=== PATIENT | female | born 1980 | race Caucasian/White ===

== ENCOUNTER → 2022-06-07 12:18 | Outpatient (BNVA) | payer SELFPAY | PROVIDERS: PCP Nurse Practitioner; Visit Provider Family Medicine | DX: Z00.00 Encounter for general adult medical examination without abnormal findings (principal); N97.9 Female infertility, unspecified | CPT/HCPCS: 80053; 84443; 85025 ==

== ENCOUNTER 2022-06-19 04:13 | Emergency (ER) | payer SELFPAY ==
[2022-06-19 04:17] VITALS: BP 125/88; PULSE 55; RESP 28; TEMP 36.9; O2SAT 98; BMI 29.9
--- NOTE | 2022-06-19 04:19 | CTR_ITS ---
PROCEDURE INFORMATION: Exam: CT Abdomen And Pelvis Without Contrast Exam date and time: 06/19/2022 4:28 AM Age: 42 years old Clinical indication: Abdominal pain; Generalized; Additional info: Abd pain TECHNIQUE: Imaging protocol: Computed tomography of the abdomen and pelvis without contrast. Radiation optimization: All CT scans at this facility use at least one of these dose optimization techniques: automated exposure control; mA and/or kV adjustment per patient size (includes targeted exams where dose is matched to clinical indication); or iterative reconstruction. COMPARISON: No relevant prior studies available. RADIATION DOSE METRICS: Total DLP (mGy-cm): 687.29 FINDINGS: Liver: Normal. No mass. Gallbladder and bile ducts: Normal. No calcified stones. No ductal dilation. Pancreas: Normal. No ductal dilation. Spleen: Normal. No splenomegaly. Adrenal glands: Normal. No mass. Kidneys and ureters: Normal. No hydronephrosis. Stomach and bowel: Unremarkable. No obstruction. No mucosal thickening. Appendix: No evidence of appendicitis. Intraperitoneal space: Trace free fluid noted in the pelvis. No free air. Vasculature: Unremarkable. No abdominal aortic aneurysm. Lymph nodes: Unremarkable. No enlarged lymph nodes. Urinary bladder: Unremarkable as visualized. Reproductive: Normal uterus. Prominent left ovary measuring 5.2 x 3.6 x 4.3 cm. Left ovarian cyst measuring 2.1 cm noted. Bones/joints: Unremarkable. No acute fracture. Soft tissues: Unremarkable. CT/CT abdomen pelvis wo con [id number] IMPRESSION: Enlarged heterogeneous appearance of the left ovary. Further characterization with pelvic ultrasound is recommended. Otherwise unremarkable CT examination of the abdomen and pelvis.
--- NOTE | 2022-06-19 04:20 | W.ED.ABDPA2 ---
Documented by User: Owen Milton MD 06/19/22 05:35 HPI - Abdominal Pain General: Chief Complaint: Vaginal Bleeding Stated Complaint: heavy vaginal bleeding, abd pain Time Seen by Provider: 06/19/22 04:16 Source: patient Mode of arrival: ambulatory Limitations: no limitations History of Present Illness: 42-year-old female states that she just started her period 2 days ago states she has been having severe cramps and lower abdominal pain states it got much worse tonight 2 to 3 hours ago she states in her lower abdomen mainly the left side. States her pain is currently an 8 out of 10 she denies any heavy vaginal bleeding states has been bleeding like her normal. Denies any clot passage denies any vaginal discharge denies any worsening proving factors. Associated Symptoms: Denies chills and fever(s) Review of Systems Const: Denies: fever(s), chills, body aches or change in appetite Eyes: Denies: blurry vision or eye discomfort ENMT: Denies: throat pain or dental pain Card: Denies: chest pain Resp: Denies: dyspnea GI: Reports: abdominal pain : Reports: vaginal bleeding Musc: Denies: neck pain or back pain Skin/Breast: Denies: rash Neuro: Denies: headache(s) Psych: Denies: depression Maik/Lymph: Denies: easy bruising All/Imm: Denies: urticaria PFSH ED PFSH: Medical History No pertinent past medical history Surgical History No pertinent past surgical history Family History Grandfather Cancer Grandmother Cancer liver Denies family history of Diabetes CAD (coronary artery disease) Clotting disorder Dementia Psychiatric illness Bleeding disorder Hypertension Stroke Social History Smoking and tobacco status: never smoked Second hand smoke exposure: No Alcohol intake: never Adopted: No Caregiver/support person: Yes Lives independently: Yes Household members: spouse Marital status: service: No Current occupational status: employed Current occupation: Self History of recent travel: No Current gender identity: Female Special shayne needs: No Agree to transfusion: Yes Physical Exam Const: COMMON NORMALS: no acute distress, patient oriented x3 and healthy appearing HENMT: COMMON NORMALS: normocephalic and atraumatic HEAD & SCALP: normocephalic and atraumatic Eye: COMMON NORMALS: Equal, round and reactive pupils present and EOMs intact bilaterally PUPIL: Yes Equal, round and reactive pupils present Neck/C-Spine: COMMON NORMALS: full ROM and supple Chest: COMMONS NORMALS: normal inspection of the chest and normal palpation of entire chest wall Resp: COMMON NORMALS: normal respiratory effort, No retractions, No use of accessory muscles and clear to auscultation bilaterally AUSCULTATION: clear to auscultation bilaterally Cardio: COMMON NORMALS: regular rate, regular rhythm and No murmurs present (Cardio) RATE: regular rate RHYTHM: regular rhythm GI: COMMON NORMALS: Normal to inspection, nondistended, normoactive bowel sounds present, Soft to palpation and no masses PALPATION: Yes Soft to palpation OTHER: lower abd tenderness Extremity: COMMON NORMALS: normal to inspection and full ROM Neuro: COMMON NORMALS: patient oriented x3, moves all extremities and no focal motor deficits Psych: COMMON NORMALS: mental status grossly normal, Normal thought process present and cooperative THOUGHT PROCESS: Normal thought process present Skin: COMMON NORMALS: no rashes or lesions noted and no wounds GENERAL SKIN EXAM: no rashes or lesions noted Course Vital Signs: Vital signs: Vital Signs Temperature 98.4 F 06/19/22 04:17 Pulse Rate 50 L 06/19/22 06:20 Respiratory Rate 16 06/19/22 06:20 Blood Pressure 101/56 06/19/22 06:20 Pulse Oximetry 95 06/19/22 06:20 Oxygen Delivery Me thod 06/19/22 06:20 MDM - Abdominal Pain Medical Decision Making Patient presents with lower abdominal pain with her menstruation her pain currently is resolved CT did show an enlarged left ovary with recommend ultrasound ultrasound is pending at this time her blood work is normal care turned over Dr. Thompson to follow ultrasound findings Lab Data : 06/19/22 04:24 06/19/22 04:24 Labs/Radiology: Radiology Impressions Abdomen/Pelvis CT 06/19/22 04:19 IMPRESSION: Enlarged heterogeneous appearance of the left ovary. Further characterization with pelvic ultrasound is recommended. Otherwise unremarkable CT examination of the abdomen and pelvis. Laboratory Results WBC 9.3 10^3/uL (4.0-10.0) 06/19/22 04:24 RBC 4.37 10^6/uL (4.1-5.3) 06/19/22 04:24 Hgb 12.4 g/dL (11.5-15.3) 06/19/22 04:24 Hct 37.3 % (37.0-47.0) 06/19/22 04:24 MCV 85.4 fl (81-99) 06/19/22 04:24 MCH 28.4 pg (28.0-34.0) 06/19/22 04:24 MCHC 33.2 g/dL (30.0-36.0) 06/19/22 04:24 RDW 12.5 % (12.1-15.1) 06/19/22 04:24 Plt Count 218 10^3/cmm (130-400) 06/19/22 04:24 MPV 9.5 fL (7.4-10.4) 06/19/22 04:24 Neut % (Auto) 60.2 % 06/19/22 04:24 Lymph % (Auto) 31.7 % 06/19/22 04:24 [place] % (Auto) 5.4 % 06/19/22 04:24 Eos % (Auto) 2.0 % 06/19/22 04:24 Baso % (Auto) 0.5 % 06/19/22 04:24 Neut # (Auto) 5.60 10^3/uL (1.8-7.7) 06/19/22 04:24 Lymph # (Auto) 3.0 10^3/uL (0.8-4.8) 06/19/22 04:24 [place] # (Auto) 0.5 10^3/uL (0.2-0.9) 06/19/22 04:24 Eos # (Auto) 0.2 10^3/uL (0.0-0.8) 06/19/22 04:24 Baso # (Auto) 0.1 10^3/uL (0.0-0.1) 06/19/22 04:24 Nucleated RBC % (auto) 0 % 06/19/22 04:24 Nucleated RBCs # 0.0 /100WBC 06/19/22 04:24 Sodium 139 mmol/L (136-145) 06/19/22 04:24 Potassium 3.7 mmol/L (3.5-5.1) 06/19/22 04:24 Chloride 104 mmol/L (98-107) 06/19/22 04:24 Carbon Dioxide 22 mmol/L (22-29) 06/19/22 04:24 Anion Gap 16.7 (5-19) 06/19/22 04:24 BUN 12 mg/dL (6-20) 06/19/22 04:24 Creatinine 0.8 mg/dL (0.5-0.9) 06/19/22 04:24 GFR Calculation 78.7 mL/min (90-130) L 06/19/22 04:24 Glucose 121 mg/dL (65-115) H 06/19/22 04:24 Calculated Osmolality 289 mOsm/kg (285-295) 06/19/22 04:24 Calcium 8.8 mg/dL (8.5-10.5) 06/19/22 04:24 Total Bilirubin 0.2 mg/dL (0.15-1.2) 06/19/22 04:24 AST 18 U/L (0-32) 06/19/22 04:24 ALT 17 U/L (0-33) 06/19/22 04:24 Alkaline Phosphatase 56 U/L (35-105) 06/19/22 04:24 Total Protein 6.2 g/dL (6.6-8.7) L 06/19/22 04:24 Albumin 4.0 g/dL (3.5-5.2) 06/19/22 04:24 Globulin 2.2 g/dL (1.3-4.6) 06/19/22 04:24 Lipase 25 U/L (13-60) 06/19/22 04:24 HCG, Qual Negative (Negative) 06/19/22 04:24 Urine Color Yellow (Yellow) 06/19/22 05:06 Urine Appearance Cloudy (CLEAR) 06/19/22 05:06 Urine pH 5 (5-7) 06/19/22 05:06 Ur Specific Everly 1.030 (1.005-1.030) 06/19/22 05:06 Urine Protein 1+ (Negative) H 06/19/22 05:06 Urine Glucose (UA) Norm (Normal) 06/19/22 05:06 Urine Ketones 1+ (Negative) H 06/19/22 05:06 Urine Blood 3+ (Negative) H 06/19/22 05:06 Urine Nitrate Negative (Negative) 06/19/22 05:06 Urine Bilirubin Neg (Negative) 06/19/22 05:06 Urine Urobilinogen Norm mg/dL (Negative) 06/19/22 05:06 Ur Leukocyte Esterase Trace (Negative) H 06/19/22 05:06 Urine RBC Too numerous to cnt /hpf (0-2) H 06/19/22 05:06 Urine WBC 25-40 /hpf (0-5) H 06/19/22 05:06 Ur Squamous Epith Cells 5-10 /hpf (0-5) H 06/19/22 05:06 Amorphous Sediment Not Reportable 06/19/22 05:06 Urine Bacteria 2+ /hpf (NONE) H 06/19/22 05:06 Discharge Plan Discharge Patient Disposition: Home Clinical Impression: Chocolate cyst of ovary, Left ovarian enlargement Condition: Stable Prescriptions: New diclofenac sodium 75 mg tablet,delayed release (DR/EC) 75 mg PO Q12H PRN (Reason: pain) Qty: 20 0RF Discharge Orders: Discharge ED (Routine); Ordered 06/19/22 Ordered By: Rishi Winters Referrals: Yulite Pascual MD [Primary Care Provider] - Discharge Diet: Usual diet Discharge Activity: Resume usual activity Patient Instructions: Opioid Safety Activity Restrictions/Additional Instructions: Case management to make arrangements for you to follow-up with gynecology regarding the enlargement of the left ovary and this cyst on the left ovary. Sign Out Sign Out Data: Patient Sign Out occurred on 06/19/22 at 06:00. Patient's care was discussed, and care was transferred from to Rishi Winters DO. Coding Level of Care Code ED Maintenance Services Dispatcher for Chg Fwd Exam Comprehensive Documented by User: Rishi Winters DO 06/19/22 06:41 HPI - Abdominal Pain General: Chief Complaint: Vaginal Bleeding Stated Complaint: heavy vaginal bleeding, abd pain Time Seen by Provider: 06/19/22 04:16 PFSH ED PFSH: Medical History No pertinent past medical history Surgical History No pertinent past surgical history Family History Grandfather Cancer Grandmother Cancer liver Denies family history of Diabetes CAD (coronary artery disease) Clotting disorder Dementia Psychiatric illness Bleeding disorder Hypertension Stroke Social History Smoking and tobacco status: never smoked Second hand smoke exposure: No Alcohol intake: never Adopted: No Caregiver/support person: Yes Lives independently: Yes Household members: spouse Marital status: service: No Current occupational status: employed Current occupation: Self History of recent travel: No Current gender identity: Female Special shayne needs: No Agree to transfusion: Yes Course Vital Signs: Vital signs: Vital Signs Temperature 98.4 F 06/19/22 04:17 Pulse Rate 50 L 06/19/22 06:20 Respiratory Rate 16 06/19/22 06:20 Blood Pressure 101/56 06/19/22 06:20 Pulse Oximetry 95 06/19/22 06:20 Oxygen Delivery Me thod 06/19/22 06:20 MDM - Abdominal Pain Medical Decision Making Patient presents with lower abdominal pain with her menstruation her pain currently is resolved CT did show an enlarged left ovary with recommend ultrasound ultrasound is pending at this time her blood work is normal care turned over Dr. Thompson to follow ultrasound findings Care from Dr. Milton at change of shift. Patient has a enlarged left ovary with a 2 cm cyst appears to be endometrioma. There is good blood flow reported by the blood bank laboratory technologist. Final ultrasound report pending. Pain is not well controlled. We are going to go ahead and discharge her home we will set her up to see gynecology return if has further problems. Medical Records I reviewed the patient's medical records. Lab Data I reviewed the patient's lab results. : 06/19/22 04:24 06/19/22 04:24 Labs/Radiology: Radiology Impressions Abdomen/Pelvis CT 06/19/22 04:19 IMPRESSION: Enlarged heterogeneous appearance of the left ovary. Further characterization with pelvic ultrasound is recommended. Otherwise unremarkable CT examination of the abdomen and pelvis. Laboratory Results WBC 9.3 10^3/uL (4.0-10.0) 06/19/22 04:24 RBC 4.37 10^6/uL (4.1-5.3) 06/19/22 04:24 Hgb 12.4 g/dL (11.5-15.3) 06/19/22 04:24 Hct 37.3 % (37.0-47.0) 06/19/22 04:24 MCV 85.4 fl (81-99) 06/19/22 04:24 MCH 28.4 pg (28.0-34.0) 06/19/22 04:24 MCHC 33.2 g/dL (30.0-36.0) 06/19/22 04:24 RDW 12.5 % (12.1-15.1) 06/19/22 04:24 Plt Count 218 10^3/cmm (130-400) 06/19/22 04:24 MPV 9.5 fL (7.4-10.4) 06/19/22 04:24 Neut % (Auto) 60.2 % 06/19/22 04:24 Lymph % (Auto) 31.7 % 06/19/22 04:24 [place] % (Auto) 5.4 % 06/19/22 04:24 Eos % (Auto) 2.0 % 06/19/22 04:24 Baso % (Auto) 0.5 % 06/19/22 04:24 Neut # (Auto) 5.60 10^3/uL (1.8-7.7) 06/19/22 04:24 Lymph # (Auto) 3.0 10^3/uL (0.8-4.8) 06/19/22 04:24 [place] # (Auto) 0.5 10^3/uL (0.2-0.9) 06/19/22 04:24 Eos # (Auto) 0.2 10^3/uL (0.0-0.8) 06/19/22 04:24 Baso # (Auto) 0.1 10^3/uL (0.0-0.1) 06/19/22 04:24 Nucleated RBC % (auto) 0 % 06/19/22 04:24 Nucleated RBCs # 0.0 /100WBC 06/19/22 04:24 Sodium 139 mmol/L (136-145) 06/19/22 04:24 Potassium 3.7 mmol/L (3.5-5.1) 06/19/22 04:24 Chloride 104 mmol/L (98-107) 06/19/22 04:24 Carbon Dioxide 22 mmol/L (22-29) 06/19/22 04:24 Anion Gap 16.7 (5-19) 06/19/22 04:24 BUN 12 mg/dL (6-20) 06/19/22 04:24 Creatinine 0.8 mg/dL (0.5-0.9) 06/19/22 04:24 GFR Calculation 78.7 mL/min (90-130) L 06/19/22 04:24 Glucose 121 mg/dL (65-115) H 06/19/22 04:24 Calculated Osmolality 289 mOsm/kg (285-295) 06/19/22 04:24 Calcium 8.8 mg/dL (8.5-10.5) 06/19/22 04:24 Total Bilirubin 0.2 mg/dL (0.15-1.2) 06/19/22 04:24 AST 18 U/L (0-32) 06/19/22 04:24 ALT 17 U/L (0-33) 06/19/22 04:24 Alkaline Phosphatase 56 U/L (35-105) 06/19/22 04:24 Total Protein 6.2 g/dL (6.6-8.7) L 06/19/22 04:24 Albumin 4.0 g/dL (3.5-5.2) 06/19/22 04:24 Globulin 2.2 g/dL (1.3-4.6) 06/19/22 04:24 Lipase 25 U/L (13-60) 06/19/22 04:24 HCG, Qual Negative (Negative) 06/19/22 04:24 Urine Color Yellow (Yellow) 06/19/22 05:06 Urine Appearance Cloudy (CLEAR) 06/19/22 05:06 Urine pH 5 (5-7) 06/19/22 05:06 Ur Specific Everly 1.030 (1.005-1.030) 06/19/22 05:06 Urine Protein 1+ (Negative) H 06/19/22 05:06 Urine Glucose (UA) Norm (Normal) 06/19/22 05:06 Urine Ketones 1+ (Negative) H 06/19/22 05:06 Urine Blood 3+ (Negative) H 06/19/22 05:06 Urine Nitrate Negative (Negative) 06/19/22 05:06 Urine Bilirubin Neg (Negative) 06/19/22 05:06 Urine Urobilinogen Norm mg/dL (Negative) 06/19/22 05:06 Ur Leukocyte Esterase Trace (Negative) H 06/19/22 05:06 Urine RBC Too numerous to cnt /hpf (0-2) H 06/19/22 05:06 Urine WBC 25-40 /hpf (0-5) H 06/19/22 05:06 Ur Squamous Epith Cells 5-10 /hpf (0-5) H 06/19/22 05:06 Amorphous Sediment Not Reportable 06/19/22 05:06 Urine Bacteria 2+ /hpf (NONE) H 06/19/22 05:06 Discharge Plan Discharge Patient Disposition: Home Clinical Impression: Chocolate cyst of ovary, Left ovarian enlargement Condition: Stable Prescriptions: New diclofenac sodium 75 mg tablet,delayed release (DR/EC) 75 mg PO Q12H PRN (Reason: pain) Qty: 20 0RF Discharge Orders: Discharge ED (Routine); Ordered 06/19/22 Ordered By: Rishi Winters Referrals: Yuliet Pascual MD [Primary Care Provider] - Discharge Diet: Usual diet Discharge Activity: Resume usual activity Patient Instructions: Opioid Safety Activity Restrictions/Additional Instructions: Case management to make arrangements for you to follow-up with gynecology regarding the enlargement of the left ovary and this cyst on the left ovary. Sign Out Sign Out Data: Patient Sign Out occurred on 06/19/22 at 06:00. Patient's care was discussed, and care was transferred from to Rishi Winters DO. Coding Level of Care Code ED Maintenance Services Dispatcher for Chg Fwd Exam Comprehensive
[2022-06-19 04:32] LABS: Basophils # 0.1 10^3/uL (0.0-0.1); Basophils % 0.5 %; Eosinophils # 0.2 10^3/uL (0.0-0.8); Hematocrit 37.3 % (37.0-47.0); Hemoglobin 12.4 g/dL (11.5-15.3); Lymphocytes % 31.7 %; Mean Corpuscular HGB Conc 33.2 g/dL (30.0-36.0); Mean Corpuscular Hemoglobin 28.4 pg (28.0-34.0); Mean Corpuscular Volume 85.4 fl (81-99); Mean Platelet Volume 9.5 fL (7.4-10.4); Monocytes # 0.5 10^3/uL (0.2-0.9); Monocytes % 5.4 %; Neutrophils % 60.2 %; Nucleated Red Blood Cells % 0 %; Platelet Count 218 10^3/cmm (130-400); Red Blood Count 4.37 10^6/uL (4.1-5.3); Red Cell Distribution Width 12.5 % (12.1-15.1); White Blood Count 9.3 10^3/uL (4.0-10.0)
[2022-06-19] MEDS: ondansetron 2 mg/ML SDV 2 mL 4 MG IVP (04:33)
[2022-06-19 04:34] VITALS: RESP 22
[2022-06-19] MEDS: sodium chloride 0.9% 1,000 ML 999 ML IV (04:34)
[2022-06-19] MEDS: HYDROmorphone 1 mg/mL INJ 1 mL 0.5 MG IVP (04:34)
[2022-06-19 04:51] LABS: HCG, Serum Qual Negative (Negative)
[2022-06-19 04:54] LABS: Alanine Aminotransferase 17 U/L (0-33); Alkaline Phosphatase 56 U/L (35-105); Anion Gap 16.7 (5-19); Aspartate Amino Transferase 18 U/L (0-32); Blood Urea Nitrogen 12 mg/dL (6-20); Calcium 8.8 mg/dL (8.5-10.5); Carbon Dioxide 22 mmol/L (22-29); Chloride 104 mmol/L (98-107); Globulin 2.2 g/dL (1.3-4.6); Glomerular Filtration Rate 78.7 mL/min (90-130); Glucose 121 mg/dL (65-115); Lipase 25 U/L (13-60); Osmolality Calculated 289 mOsm/kg (285-295); Potassium 3.7 mmol/L (3.5-5.1); Sodium 139 mmol/L (136-145); Total Bilirubin 0.2 mg/dL (0.15-1.2); Total Protein 6.2 g/dL (6.6-8.7)
--- NOTE | 2022-06-19 04:55 | USR_ITS ---
PROCEDURE INFORMATION: Exam: US Pelvis, Transvaginal Exam date and time: 06/19/2022 5:52 AM Age: 42 years old Clinical indication: Pelvic pain; Additional info: Abd pain TECHNIQUE: Imaging protocol: Real-time transvaginal pelvic ultrasound with image documentation. Transvaginal imaging was used for better evaluation of the endometrium, adnexa, and/or cervix. COMPARISON: CT abdomen pelvis wo con [id number] 06/19/2022 4:28 AM FINDINGS: Uterus: The uterus is retroverted. The uterus measures 6.4 x 4.7 x 5.4 cm. The endometrium is within normal limits measuring up to 0.6 cm. Heterogeneity of the uterine myometrium. Right ovary/adnexa: The right ovary measures 3.2 x 2.4 x 3.2 cm. A few small follicles noted. Normal blood flow. Left ovary/adnexa: The left ovary measures 2.4 x 3.8 x 4.9 cm. Normal blood flow. Anechoic posterior acoustic enhancing simple cyst noted in the left ovary measuring up to 2.1 cm. Uniform echogenic mass in the left ovary measuring 4.9 x 2.8 x 3.5 cm with questionable trace peripheral blood flow versus normal surrounding ovarian blood. Intraperitoneal space: No significant free fluid. US/US transvaginal [id number] IMPRESSION: 1. Uniform echogenic mass in the left ovary measuring up to 4.9 cm. Findings could be consistent with a hemorrhagic ovarian cyst, endometrioma, or solid ovarian mass. O-RADS score 3, low risk for malignancy. Recommend follow-up MRI of the pelvis with and without contrast. 2. Heterogeneity of the uterine myometrium, of indeterminate etiology recommend attention on follow-up MRI.
[2022-06-19 05:11] VITALS: BP 98/54; PULSE 51; RESP 16; O2SAT 95
[2022-06-19 05:25] LABS: Add Urine Microscopic? YES; Bilirubin Urine Neg (Negative); Blood Urine 3+ (Negative); Glucose Urine UA Norm (Normal); Ketones Urine 1+ (Negative); Leukocyte Esterase Urine Trace (Negative); Nitrate Urine Negative (Negative); Protein Urine 1+ (Negative); Urine Appearance Cloudy (CLEAR); Urine Color Yellow (Yellow); Urobilinogen Urine Norm (Negative); pH Urine 5 (5-7)
[2022-06-19 05:28] LABS: RBC Urine TOO NUMEROUS TO CNT /hpf (0-2)
[2022-06-19 05:29] LABS: Add Urine Culture? Yes; Bacteria Urine 2+ /hpf; WBC Urine 25-40 /hpf (0-5)
[2022-06-19 06:20] VITALS: BP 101/56; PULSE 50; RESP 16; O2SAT 95
--- NOTE | 2022-06-19 10:19 | DCPLANNER ---
Addendum entered by Charis Faye 08/08/22 12:52: Patient had an appointment scheduled with [facility] - patient did attend appointment. Addendum entered by Charis Faye 06/20/22 13:50: Patient has a follow up appointment scheduled for Saturday, July 20, 2022 at 8:[address] Victoria. Clinic will call patient with appointment information. Original Note: assistant nurse manager had message to schedule a follow up appointment for patient with [facility]. assistant nurse manager sent patients information to the front office staff at [facility]. Patients information will be printed and reviewed. Clinic will call patient with appointment information.
== END 2022-06-19 06:55 | disposition home or self-care (01) ==
PROVIDERS: Emergency Medicine; Emergency Provider Family Medicine; PCP Family Medicine
DX: N80.1 Endometriosis of ovary (principal); Q50.39 Other congenital malformation of ovary
CPT/HCPCS: 74176; 76830; 76856; 80053; 81001; 83690; 84703; 85025; 87086; 96361; 96374; 96375; 99285; J1170; J2405; J7030

== ENCOUNTER → 2022-07-20 10:09 | Outpatient (BNVA) | payer SELFPAY | PROVIDERS: PCP Family Medicine; Visit Provider Obstetrics & Gynecology | DX: N83.202 Unspecified ovarian cyst, left side (principal) | CPT/HCPCS: 83001 ==

== ENCOUNTER → 2022-08-03 07:36 | Outpatient (BNVA) | payer SELFPAY | PROVIDERS: PCP Family Medicine; Visit Provider Obstetrics & Gynecology | DX: N83.202 Unspecified ovarian cyst, left side (principal); D25.9 Leiomyoma of uterus, unspecified | CPT/HCPCS: 76830; 84144 ==

== ENCOUNTER 2022-08-23 08:40 | Outpatient (CLI) | payer SELFPAY ==
--- NOTE | 2022-08-23 09:00 | FL_ITS ---
WS: [id number] Hysterosalpingogram, 08/23/2022 Clinical Data: N97.9 - Female infertility, unspecified Comparison: None. Fluoroscopy time: 0min [id number] # of spot films: 5 Findings: Dr. Victoria injected the contrast material filling the uterine cavity. There was slight intrauterine c avity deformity which can be seen with uterine leiomyomas. The uterus is tipped to the right in the p beto. The contrast material filled both fallopian tubes and there was bilateral spill with no dilata tion or obstruction. FL/FL hysterosalpingography [id number] Impression: 1. Mild deformity of the uterine cavity which can be seen with uterine leiomyom as. 2. Normal fallopian tube filling without any obstruction. 3. Normal spill of contrast into the pelvis.
[2022-08-23] MEDS: iohexol 300 mg/mL 50 mL Btl VAGINAL (09:51)
== END 2022-08-23 08:41 | disposition home or self-care (01) ==
PROVIDERS: PCP Family Medicine; Visit Provider Obstetrics & Gynecology
DX: N97.9 Female infertility, unspecified (principal); D25.9 Leiomyoma of uterus, unspecified
CPT/HCPCS: 74740

== ENCOUNTER 2025-10-15 12:27 | Outpatient (CLI) | payer SELFPAY ==
--- NOTE | 2025-10-15 12:45 | US_ITS ---
WS: [id number] THYROID ULTRASOUND HISTORY: lump on right side of neck COMPARISON: None available. Right lobe: 1.5 cm x 1.8 cm x 4.5 cm (w x ap x l). Volume: 5.7 cm3. Normal sized gland. There is a large isoechoic nodule with low echogenicity border which is well-circumscribed in the mid gland with mild increased vascularity. Nodule measures 2.0 x 1.3 x 2.7 cm with no echogenic foci. Left lobe: 1.2 cm x 0.9 cm x 4.0 cm (w x ap x l). Volume: 1.9 cm3. Normal size and echotexture. No significant or dominant nodules are present. Isthmus: 0.3 cm. US/US thyroid [id number] IMPRESSION: 1. TI-RADS 3; mildly suspicious nodule. Mid RIGHT thyroid nodule. Ultrasound-g uided FNA recommended as this nodule is greater than 2.5 cm.
== END 2025-10-15 12:28 | disposition home or self-care (01) ==
LOC: RAD 12:28
PROVIDERS: PCP Nurse Practitioner Family; Visit Provider Internal Medicine Endocrinology, Diabetes & Metabolism
DX: E03.8 Other specified hypothyroidism (principal); E04.1 Nontoxic single thyroid nodule
CPT/HCPCS: 76536